=== PATIENT | female | born 1980 | race Asian ===

== ENCOUNTER → 2025-02-24 14:23 | Outpatient (REF) | payer OTHER, SELFPAY ==
[2025-02-24 15:06] LABS: HCG, Urine Qualitative Screen Negative
== END ==
LOC: REG 14:23
PROVIDERS: ATTENDING PHYSICIAN Radiology Radiation Oncology; FAMILY PHYSICIAN Internal Medicine
DX: C50.211 Malignant neoplasm of upper-inner quadrant of right female breast (principal); Z17.1 Estrogen receptor negative status [ER-]
CPT/HCPCS: 81025